=== PATIENT | male | born 1990 | race African-American/Black ===

== ENCOUNTER 2019-02-16 15:49 | Emergency (ER) | payer OTHER ==
[~2019-02-16] VITALS: Ht 172.7 cm; Wt 83.9 kg
[~2019-02-16 15:49] MED LIST: CODACE30 PO; CRUTCH4 USE; CYCL10 PO; IBUP600 PO; Mobic15 MG PO
== END 2019-02-16 18:02 | disposition home or self-care (01) ==
LOC: ER 15:49
DX: S01.01XA Laceration without foreign body of scalp, initial encounter (principal); Z23 Encounter for immunization; F17.200 Nicotine dependence, unspecified, uncomplicated; Z88.6 Allergy status to analgesic agent; Z88.5 Allergy status to narcotic agent; V00.131A Fall from skateboard, initial encounter
CPT/HCPCS: 12002; 90471; 90714; 99283-25

== ENCOUNTER 2019-04-03 07:46 | Emergency (ER) | payer OTHER ==
[~2019-04-03] VITALS: Ht 172.7 cm; Wt 79.4 kg
== END 2019-04-03 09:27 | disposition home or self-care (01) ==
LOC: ER 07:46
DX: S91.332A Puncture wound without foreign body, left foot, initial encounter (principal); Z23 Encounter for immunization; F17.210 Nicotine dependence, cigarettes, uncomplicated; Z88.5 Allergy status to narcotic agent; W34.010A Accidental discharge of airgun, initial encounter
CPT/HCPCS: 73630; 90471; 90714; 96372; 99283-25; J0690

== ENCOUNTER 2025-02-15 00:32 | Emergency (ER) | payer OTHER ==
[~2025-02-15] VITALS: Ht 172.7 cm; Wt 79.8 kg
[2025-02-15 00:41] VITALS: BP 145/102
[2025-02-15] MEDS ORDERED: HYDROcodone 5-APAP 325 TAB PO ONE (01:25)
[2025-02-15] MEDS ORDERED: RX Prepack 6 Tabs Oxycodone 5mg UD ONE (01:30)
[2025-02-15] MEDS ORDERED: RX Prepack 2 Sprays Naloxone HCL 4 MG/SPRAY UD ONE (01:30)
== END 2025-02-15 02:25 | disposition home or self-care (01) ==
LOC: ER 00:32
DX: S82.874A Nondisplaced pilon fracture of right tibia, initial encounter for closed fracture (principal); F17.210 Nicotine dependence, cigarettes, uncomplicated; Z59.89 Other problems related to housing and economic circumstances; Z88.1 Allergy status to other antibiotic agents; W13.8XXA Fall from, out of or through other building or structure, initial encounter
CPT/HCPCS: 29515; 73610; 99283-25; A9270

== ENCOUNTER 2025-02-26 18:38 | Emergency (ER) | payer OTHER ==
[~2025-02-26] VITALS: Ht 172.7 cm; Wt 79.8 kg
[2025-02-26 18:42] VITALS: BP 137/83
== END 2025-02-26 19:05 | disposition home or self-care (01) ==
LOC: ER 18:38
DX: S82.301D Unspecified fracture of lower end of right tibia, subsequent encounter for closed fracture with routine healing (principal); X58.XXXD Exposure to other specified factors, subsequent encounter; Z88.1 Allergy status to other antibiotic agents; Z88.5 Allergy status to narcotic agent; F17.200 Nicotine dependence, unspecified, uncomplicated
CPT/HCPCS: 29515; 99282-25

== ENCOUNTER 2025-06-24 15:35 | Emergency (ER) | payer SELFPAY ==
[~2025-06-24] VITALS: Ht 172.7 cm; Wt 81.7 kg
[2025-06-24 15:48] VITALS: BP 148/87
[2025-06-24 16:40] LABS: BASOPHILS ABSOLUTE AUTO 0.06 K/mm3 (0.00-0.23); BASOPHILS PERCENT AUTO 1 % (0-2); EOSINOPHILS ABSOLUTE AUTO 0.15 K/mm3 (0.00-0.68); EOSINOPHILS PERCENT AUTO 1 % (0-6); Hematocrit 39.9 % (37.0-53.0); Hemoglobin 13.4 g/dL (13.5-17.5); IMMATURE GRAN ABSOLUTE AUTO 0.02 K/mm3 (0.00-0.10); IMMATURE GRAN PERCENT AUTO 0 % (0-1); LYMPHOCYTES ABSOLUTE AUTO 1.27 K/mm3 (0.84-5.20); LYMPHOCYTES PERCENT AUTO 11 % (21-46); MONOCYTES ABSOLUTE AUTO 1.06 K/mm3 (0.16-1.47); MONOCYTES PERCENT AUTO 9 % (4-13); Mean Corpuscular HGB Conc 33.6 g/dL (31.5-36.5); Mean Corpuscular Volume 83 fL (80-100); NEUTROPHILS ABSOLUTE AUTO 9.56 K/mm3 (1.96-9.15); NEUTROPHILS PERCENT AUTO 79 % (41-73); NRBC ABSOLUTE 0.00 K/mm3 (0.00-0.02); NRBC Auto 0.0 /100 WBC (0.0-0.2); Platelet Count 288 K/mm3 (150-400); RDW Coefficient Variation 13.1 % (11.7-14.2); RDW Standard Deviation 39.6 fL (35.1-46.3)
[2025-06-24 17:12] LABS: Alanine Aminotransfer (ALT/SGP 28.0 U/L (12-78); Albumin, Blood 3.7 g/dL (3.4-5.0); Albumin/Globulin Ratio 1.1 (0.8-1.8); Anion Gap 6.0 mmol/L (3-11); Aspartate Aminotrans (AST/SGOT 21.0 U/L (12-37); Bilirubin, Total 0.5 mg/dL (0.1-1.0); Blood Urea Nitrogen 13.0 mg/dL (8-24); CO2, Blood 30.0 mmol/L (21-32); Calcium, Blood 9.0 mg/dL (8.5-10.1); Chloride, Blood 102.0 mmol/L (98-108); Creatinine, Blood 0.66 mg/dL (0.60-1.20); Globulin, Blood 3.4 g/dL (2.2-4.0); Glucose, Blood 115.0 mg/dL (70-99); Potassium, Blood 3.7 mmol/L (3.5-5.5); Sodium, Blood 134.0 mmol/L (136-145); Total Protein, Blood 7.1 g/dL (6.4-8.2)
[2025-06-24] MEDS ORDERED: Trimethoprim/Sulfamethoxazole DS Tab PO ONE (20:25)
[2025-06-24] MEDS ORDERED: CEPH500 PO (20:28)
[2025-06-24] MEDS ORDERED: BACTRIM DS TAB1 EAC1 PO (20:28)
== END 2025-06-24 20:52 | disposition home or self-care (01) ==
LOC: ER 15:35
PROVIDERS: Student in an Organized Health Care Education/Training Program
DX: S93.401A Sprain of unspecified ligament of right ankle, initial encounter (principal); L03.115 Cellulitis of right lower limb; X58.XXXA Exposure to other specified factors, initial encounter; Z79.2 Long term (current) use of antibiotics; Z88.5 Allergy status to narcotic agent; Z88.1 Allergy status to other antibiotic agents; F17.200 Nicotine dependence, unspecified, uncomplicated
CPT/HCPCS: 73610; 80053; 85025; 93971; 99284-25; A9270